=== PATIENT | male | born 1985 | race African-American/Black ===

== ENCOUNTER 2020-03-10 14:54 | Emergency (ER) | payer OTHER, SELFPAY ==
[2020-03-10 14:56] VITALS: BP 145/97; PULSE 68; RESP 16; TEMP 36.6; O2SAT 98; BMI 27.1
--- NOTE | 2020-03-10 15:12 | US_ITS ---
STUDY: SCROTUM ULTRASOUND REASON FOR EXAM: Male, 34 years old. RT TESTICLE PAIN BILAT DISCOMFORT MINOR SWELLING- X 1 MONTH TECHNIQUE: Ultrasound evaluation of the scrotum was performed with color Doppler and static asif-scale imaging. COMPARISON: None. FINDINGS: RIGHT TESTICLE INTRATESTICULAR: There is a normal size of the right testicle. The right testicle measures 4.3 x 2.8 x 1.9 cm. There is a homogenous echotexture. There is normal arterial and normal venous vascularity. There is no demonstrated right testicular mass or cyst. EXTRATESTICULAR: The epididymis is normal in size. The epididymis head measures 1.3 x 1.1 x 1.2 cm. There is normal vascularity of the epididymis. There is no demonstrated epididymal cystic structure. There is a small hydrocele. There is no demonstrated varicocele. There is no demonstrated extratesticular mass or cyst. LEFT TESTICLE INTRATESTICULAR: There is a normal size of the left testicle. The left testicle measures 4.1 x 2.7 x 2.2 cm. There is a homogenous echotexture. There is normal arterial and normal venous vascularity. There is no demonstrated left testicular mass or cyst. EXTRATESTICULAR: The epididymis is normal in size. The epididymis head measures 1.1 x 0.7 x 0.9 cm. There is normal vascularity of the epididymis. There is no demonstrated epididymal cystic structure. There is a small hydrocele. There is no demonstrated varicocele. There is no demonstrated extratesticular mass or cyst. US/Testicular with Arterial Flow IMPRESSION: Normal bilateral testicles. Electronically Signed: Hector Pino MD at 16:30 EDT Tel , Service support ,
[2020-03-10 15:23] LABS: Bacteria 0 SEEN /hpf (None Seen); Mucous, Urine 0 SEEN /hpf (<or=2+); Red Blood Cells-Urine 0 SEEN /hpf (0-5); White Blood Cells 0 SEEN /hpf (0-5)
[2020-03-10 15:33] LABS: Color, Urine Yellow (Yellow); Glucose, Dipstick Normal (Normal); Ketone-Dipstick Negative (Negative); Leukocyte Esterase-Dipstick Negative /ul (Negative); Nitrite-Dipstick Negative (Negative); Occult Blood-Urine Negative /ul (Negative); Protein-Dipstick Negative (Negative); Urine Bilirubin Dipstick Negative (Negative); Urine Clarity Clear (Clear); Urine Urobilinogen Normal (Normal)
--- NOTE | 2020-03-10 15:38 | ED.VIS.GEN ---
History of Present Illness Chief Complaint: Complaint Narrative: Patient presenting for evaluation secondary to testicular pain. Patient states that he has been dealing with testicular pain over the course of multiple weeks. Patient states that it started mildly, it is in his bilateral testicles but really right is worse than the left. Is a continuous aching type pain that is worse with movement. Patient denies that it was associated with any sort of injury. Patient states that he tried wearing more supportive underwear and that did not alleviate the symptoms. He does workout frequently, but no changes in his workout regimen or increased running or bicycling. He denies any skin changes. He denies any penile discharge or dysuria. Patient states that recently over the course of the last couple of days he has been getting some intermittent shooting pains in his right lower quadrant. Patient denies any bulging in the area. He denies any new sexual partners, has been monogamous for the last 10 years. Past Medical History - Allergies and Home Meds Allergies/Adverse Reactions: Allergies Penicillins Allergy (Verified 03/10/20 14:58) Rash Primary Care Physician: Jaquan Bedoya DO [Primary Care Provider] - Prior records reviewed: Yes Past Medical History: None Lives: Spouse/ Significant Other Smoking Status: Never smoker Drugs: None Review of Systems All systems negative except as indicated General: Denies: Chills, Fever, Sweats Eyes: Denies: Visual changes - bilaterally, Diplopia ENT: Denies: Rhinorrhea, Sore throat Cardiovascular: Denies: Chest pain, Palpitations Respiratory: Denies: Dyspnea, Cough, Dyspnea on exertion Gastrointestinal: Denies: Abdominal pain, Nausea, Vomiting, Diarrhea, Melena, Hematochezia Genitourinary: Reports: - - Testicular pain Musculoskeletal: Denies: Back pain, Extremity Pain Skin: Denies: Rash, Wounds Neurological: Denies: Headache, Weakness, Numbness Physical Exam Vital Signs/Narrative: Vital Signs Temp Pulse Resp BP Pulse Ox 03/10/20 14:56 98 F 68 16 145/97 H 98 Inital Vital Signs reviewed: Yes General: Well nourished, Well developed, No Acute Distress Head: Normocephalic, Atraumatic Eyes: Perrl, EOMI ENT: Moist mucous membranes, No rhinorrhea Neck: Supple, Nontender Cardiovascular: Regular rate, Regular rhythm, No murmurs Respiratory: No distress, CTA bilaterally, Chest nontender Abdomen: Soft, Nontender, Nondistended, Normal bowel sounds : - - exam shows no evidence of penile or scrotal lesions, no lymphadenopathy in the groin. No evidence of palpable hernias both direct or indirect with Valsalva on standing. Testicles are in a normal lie, did not seem to have any lumps bumps masses normal spermatic cords no tenderness to palpation. No urethral discharge noted. Back: Nontender, Normal Inspection Extremities: Nontender, No edema Skin: Normal color, No rash Neurological: Alert, Oriented x3, Cranial nerves II-XII grossly intact, Normal Strength, Normal Sensation Psychological: Normal affect, Normal Mood Diagnostic/Tx/Re-eval - Medical Decision Making Clinical Impression(s) from Imaging Studies Testicular Ultrasound 03/10/20 15:12 IMPRESSION: Normal bilateral testicles. Electronically Signed: Hector Pino MD at 16:30 EDT Tel , Service support , Laboratory Data 03/10/20 15:15 Urine Color Yellow Urine Clarity Clear Urine pH 5.0 Ur Specific [place] 1.020 Urine Protein Negative Urine Glucose (UA) Normal Urine Ketones Negative Urine Occult Blood Negative Urine Nitrite Negative Urine Bilirubin Negative Urine Urobilinogen Normal Ur Leukocyte Esterase Negative Urine RBC 0 SEEN Urine WBC 0 SEEN Ur Squamous Epith Cells 0-5 SEEN Urine Bacteria 0 SEEN Urine Mucus 0 SEEN Patient presented secondary to testicular pain. Physical exam does not show any signs of trauma, any signs of torsion, and I was not able to appreciate any inguinal hernias. Patient at this point has nondescript testicular pain with a negative work-up. Patient will be given referral to urology. He was recommended scrotal support patient was discharged in stable condition. ED Disposition - Plan for ED Patient: Disposition: Home or Assisted Living Diagnosis: Testicular pain Instructions: ED Testicular Pain [facility] Referrals: Ganesh Edmond MD [STAFF PHYSICIAN] - 5-7 Days
[2020-03-10 15:45] LABS: Squamous Epithelial Cells - UA 0-5 SEEN /hpf (0-5)
== END 2020-03-10 16:58 | disposition home or self-care (01) ==
PROVIDERS: Emergency Provider Emergency Medicine; PCP Student in an Organized Health Care Education/Training Program
DX: N50.811 Right testicular pain (principal); N50.812 Left testicular pain
CPT/HCPCS: 76870; 81001; 93976; 99282

== ENCOUNTER 2023-10-06 01:20 | Emergency (ER) | payer OTHER, SELFPAY ==
[2023-10-06 01:20] VITALS: BP 145/98; PULSE 78; RESP 16; TEMP 35.8; O2SAT 99; BMI 29.1
--- NOTE | 2023-10-06 01:36 | CT_ITS ---
STUDY: CTA HEAD AND NECK WITH CONTRAST REASON FOR EXAM: Male, 37 years old. visual disturbance RADIATION DOSAGE (If Supplied By Facility): CTDIvol = ( 32.13 ) mGy, DLP = ( 1492.09 ) mGycm TECHNIQUE: CT angiography was performed with a multi-detector CT scanner. Data acquisition was obtained from the skull base through the vertex following intravenous administration of IV 100mL [id number]. MIP images were reconstructed from the axial data set. Post-processing of the angiographic images was performed, with multiplanar reformation and 3D reconstruction. Individualized dose optimization techniques were used for this CT. COMPARISON: No relevant priors. FINDINGS: Normal bilateral petrous carotid arteries. Normal right cavernous carotid artery with a normal supraclinoid bifurcation. Normal left cavernous carotid artery with a normal supraclinoid bifurcation. Normal right A1 segments of the anterior cerebral artery. Normal left A1 segments of the anterior cerebral artery. Normal intact anterior communicating artery (ACOM). Normal bilateral A2 segments of the anterior cerebral arteries. Normal right M1 and M2 segments of the middle cerebral arteries, with a normal M1 bifurcation. Normal left M1 and M2 segments of the middle cerebral arteries, with a normal M1 bifurcation. Normal right posterior communicating artery (PCOM). There is non-visualization of the left posterior communicating artery (PCOM). Normal bilateral vertebral arteries. Normal basilar artery with a normal basilar bifurcation. The visualized bilateral superior cerebellar (SCA) arteries are normal. Normal bilateral P1, P2 and visualized P3 segments of the posterior cerebral arteries. There is no demonstrated aneurysm of the [place]. There is no demonstrated abnormality of the visualized brain. AORTIC ARCH: Normal visualized aortic arch. Normal origins of the brachiocephalic, left common carotid, and left subclavian arteries. RIGHT CAROTID ARTERIES: Normal right common carotid artery (CCA). Normal right common carotid bulb. Normal origin of the right internal carotid (ICA) artery without a hemodynamically significant stenosis. Normal visualized cervical portion of the right internal carotid artery. Normal origin of the right external carotid artery (ECA). LEFT CAROTID ARTERIES: Normal left common carotid artery (CCA). Normal left common carotid bulb. Normal origin of the left internal carotid (ICA) artery without a hemodynamically significant stenosis. Normal visualized cervical portion of the left internal carotid artery. Normal origin of the left external carotid artery (ECA). VERTEBRAL ARTERIES: Normal bilateral vertebral arteries. CT/CTA Head AND Neck W/ Contrast IMPRESSION: Normal CTA Head and neck with contrast with no evidence of focal stenosis, occlusion or dissection. No evidence of intracranial aneurysm. Electronically Signed: Felisa Mota MD at 2:48 EST ,
[2023-10-06] MEDS: 0.9% Normal Saline (1000mL) 1,000 ML 1000 ML IV (01:52)
[2023-10-06] MEDS: Ketorolac 30 MG/ML Syringe IV (01:52)
[2023-10-06 02:00] LABS: Absolute Lymphocyte Count 2.54 X10^3/uL (0.83-4.51); Basophil# 0.04 X10^3/uL; Basophil% 0.6 % (0-1); Eosinophil# 0.35 X10^3/uL; Eosinophils% 5.4 % (0-5); Hematocrit 45.7 % (40-54); Hemoglobin 15.2 g/dL (13.0-16.5); Lymphocyte # 2.54 X10^3/ul (0.83-4.51); Lymphocyte % 39.4 % (19-41); Mean Corp Hgb Conc 33.3 g/dL (32-36); Mean Corpuscular Hgb 28.1 pg (27.0-32.0); Mean Corpuscular Volume 84.6 fL (80-94); Mean Platelet Vol. 10.6 fl (6.2-12.0); Monocyte# 0.49 X10^3/uL; Monocyte% 7.6 % (0-10); NRBC Flagged by Analyzer 0 % (0-5); Neutrophil # 3.01 X10^3/uL (2.7-7.7); Neutrophil % 46.8 % (47-70); Platelet Count 254 K/mm3 (150-450); RBC Distribution Width CV 12.2 % (11.6-14.6); RBC Distribution Width SD 36.9 fl (35.1-43.9); White Blood Count 6.4 K/mm3 (4.4-11.0)
[2023-10-06 02:08] LABS: Anion Gap 4 (5-15); BUN 20 mg/dL (7-18); BUN/Creat Ratio 12.7 RATIO (10-20); Calcium,Total 9.1 mg/dL (8.5-10.1); Chloride 108 mmol/L (98-107); Creatinine, Serum 1.58 mg/dL (0.70-1.30); EST Glomerular Filtration Rate 53 mL/min (>60); Est Glom Filt Rate - Afr Amer 64 mL/min (>60); Estimated Creatinine Clearance 78.18 ml/min; Glucose 112 mg/dL (74-106); Potassium 4.2 mmol/L (3.5-5.1); Sodium Level 140 mmol/L (136-145)
--- OUTSIDE RECORDS SUMMARY | 2023-10-06 02:32 | XMS RPT_ITS | CCD ---
Author Name Unknown Address [address] [place] [address] Organization [facility] Care Team Providers Care Sack Cleaner Name Role Phone Jaquan Bedoya DO Primary Care Provider JAQUAN BEDOYA Primary Care Unavailable NKECHI LOZANO Referring Unavailable NKECHI LOZANO Attending Unavailable JAQUAN BEDOYA Primary Care Unavailable JAQUAN BEDOYA Primary Care Unavailable NKECHI LOZANO Attending Unavailable MONA FINLEY Attending Unavailable JAQUAN BEDOYA Primary Care Unavailable JAQUAN BEDOYA Primary Care Unavailable NKECHI LOZANO Referring Unavailable JAQUAN BEDOYA Primary Care Unavailable Jaquan Bedoya DO Primary Care Provider Medications Current Medications Medication Drug Class(es) Dates Sig (Normalized) Sig (Original) predniSONE 10 mg oral tablet (1 source) Start: 08-03-2022 End: 08-15-2022 predniSONE (DELTASONE) 10 mg tablet Indications: Acute midline low back pain without sciatica Take 4 tabs daily x 3 days, then 3 tabs x 3 days, 2 tabs x 3 days, then 1 tab x3 days with food. 30 tablet 0 08/03/2022 08/15/2022 Active Completed/Discontinued Medications Medication Drug Class(es) Dates Sig (Normalized) Sig (Original) cyclobenzaprine hydrochloride 10 mg oral tablet (1 source) Muscle Relaxant Start: 08-03-2022 take 1 tablet by mouth three times daily as needed for muscle spasms cyclobenzaprine (FLEXERIL) 10 mg tablet Indications: Acute midline low back pain without sciatica Take 1 tablet by mouth three times daily as needed for muscle spasm. 15 tablet 0 08/03/2022 Active Problems Problem Classification Problem Date Documented Da te Episodic/Chronic Anxiety disorders (3 sources) Generalized anxiety disorder; Translations: [Generalized anxiety disorder] Onset: 04-02-2022 Chronic Disorders of lipid metabolism (3 sources) Mixed hyperlipidemia; Translations: [Mixed hyperlipidemia] Onset: 05-09-2022 Chronic Other screening for suspected conditions (not mental disorders or infectious disease) (3 sources) Serum creatinine raised; Translations: [Other specified abnormal findings of blood chemistry] Onset: 06-12-2022 Episodic Spondylosis; intervertebral disc disorders; other back problems (1 source) Acute low back pain; Translations: [Acute midline low back pain without sciatica] Episodic Results Test Name Value Interpretation Reference Range Facil ity Vital Signs Date Time Vital Sign Value Performing Clinician Bernardo bustamante 08-03-2022 13:01-0500 Body temperature 97.81 [degF] Neel Moreno ROTOFORMER BACKTENDER.AWNING CRAFTSPERSON Work Phone: [facility] 08-03-2022 13:01-0500 Body weight 94.08 kg Neel Moreno ROTOFORMER BACKTENDER.AWNING CRAFTSPERSON Work Phone: [facility] 08-03-2022 13:01-0500 Diastolic blood pressure 84 mm[Hg] Neel oMreno ROTOFORMER BACKTENDER.AWNING CRAFTSPERSON Work Phone: [facility] 08-03-2022 13:01-0500 Heart rate 69 /min Neel Moreno ROTOFORMER BACKTENDER.AWNING CRAFTSPERSON Work Phone: [facility] 08-03-2022 13:01-0500 Respiratory rate 16 /min Neel Moreno ROTOFORMER BACKTENDER.AWNING CRAFTSPERSON Work Phone: [facility] 08-03-2022 13:01-0500 SaO2% (BldA) [Mass fraction] 97 % Neel Moreno ROTOFORMER BACKTENDER.AWNING CRAFTSPERSON Work Phone: [facility] 08-03-2022 13:01-0500 Systolic blood pressure 122 mm[Hg] Neel Moreno ROTOFORMER BACKTENDER.AWNING CRAFTSPERSON Work Phone: [facility] 05-09-2022 15:05-0400 Body weight 93.89 kg Nkechi Lozano ROTOFORMER BACKTENDER.AWNING CRAFTSPERSON Work Phone: [facility] 05-09-2022 15:05-0400 Diastolic blood pressure 86 mm[Hg] Nkechi Lozano ROTOFORMER BACKTENDER.AWNING CRAFTSPERSON Work Phone: [facility] 05-09-2022 15:05-0400 Heart rate 70 /min Nkechi Lozano ROTOFORMER BACKTENDER.AWNING CRAFTSPERSON Work Phone: [facility] 05-09-2022 15:05-0400 Respiratory rate 16 /min Nkechi Lozano ROTOFORMER BACKTENDER.AWNING CRAFTSPERSON Work Phone: [facility] 05-09-2022 15:05-0400 SaO2% (BldA) [Mass fraction] 98 % Nkechi Lozano ROTOFORMER BACKTENDER.AWNING CRAFTSPERSON Work Phone: [facility] 05-09-2022 15:05-0400 Systolic blood pressure 124 mm[Hg] Nkechi Lozano ROTOFORMER BACKTENDER.AWNING CRAFTSPERSON Work Phone: [facility] Encounters Encounter Date Encounter Type Care Provider Facility Start: 08-06-2022 End: 08-06-2022 ambulatory MONA FINLEY Facility:[facility] Start: 08-03-2022 End: 08-03-2022 ambulatory JAQUAN Brizuela BEDOYA Facility:[facility] Start: 08-03-2022 End: 08-03-2022 Patient encounter procedure Neel Moreno ROTOFORMER BACKTENDER.AWNING CRAFTSPERSON Work Phone: [facility] Procedures Date Procedure Procedure Detail Performing Clinician Start: 04-02-2022 Adult depression screening assessment Nkechi Lozano APRN.AWNING CRAFTSPERSON Work Phone: Plan of Treatment Date Care Activity Detail Author Start: 05-09-2027 LIPID SCREEN LIPID SCREEN [facility] Start: 08-06-2023 COVID-19 VACCINE (#1) COVID-19 VACCI NE (#1) [facility] Payers Date Payer Category Payer Unknown [employer] PPO [id number] 2019-Present [phone] [address] [place] [address] PPO [id number] 2019 Unknown [id number] Social History Date Type Detail Facility Start: 04-02-2022 Tobacco smoking stat us NHIS Never smoked tobacco [facility] Start: 04-02-2022 Tobacco use and exposure Smoke less tobacco non-user [facility] Start: 04-02-2022 End: 08-06-2022 History SDOH Alcohol Frequency 2 [facility] Start: 04-02-2022 End: 08-06-2022 History SDOH Alcohol Std Drinks 1 [facility] Start: 05-15-2017 History SDOH Alcohol Comment social [facility] Start: 04-02-2022 End: 08-06-2022 History SDOH Social Connections Phone 5 [facility] Start: 04-02-2022 End: 08-06-2022 History SDOH Social Connections Meetings 3 [facility] Start: 04-02-2022 History SDOH Physica l Activity MPS 12 [facility] Start: 04-02-2022 End: 08-06-2022 History SDOH Financial 4 [facility] Start: 1985 Sex Assigned At Not on file C [facility] Clinical Notes 04-02-2022 to 08-06-2022 Neel Moreno APRN.AWNING CRAFTSPERSON - 08/03/2022 1:12 PM ESTTelephone Encounter - Deanna Marques LPN - 06/14/2022 9:48 AM EDTTelephone Encounter - Nkechi Lozano APRN.CNP - 06/13/2022 9:58 PM EDT Note Date & Type Note Facility 08-06-2022 Note HNO ID: [id number] Author: Mona Finley APRN.RE Service: ? 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 Melo is an established patient of Dr. Aureliano DO. Melo is a new patient to me today. Concerns today.. Back injury --- Seen in Urgent care on 08/03 due to acute low back pain x 1 day after playing basketball. Given prednisone taper x 12 days and flexeril TID as needed. Currently... Pt reports feeling better than urgent care visit. Still sore and tender. Taking flexeril BID currently and taking prednisone as prescribed. Pt reports pain to L side of spine in lower back. Shooting pain radiates down L leg, hx of sciatica pain in the past. 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 No other concerns or complaints. Past medical history, appointments, medications, allergies reviewed. Previous Medical History PAST MEDICAL HISTORY Diagnosis Date NEGATIVE MEDICAL HISTORY Previous Surgical History PAST SURGICAL HISTORY Procedure Laterality Date NONE Family History FAMILY HISTORY Problem Relation Age of Onset Cancer Mother thyroid Seizures Father Stroke Maternal Grandmother Heart Maternal Grandfather other (healthy) Son Patient Allergies ALLERGIES No Known Allergies Current Medications Current Outpatient Medications on File Prior to Visit Medication Sig predniSONE (DELTASONE) 10 mg tablet Take 4 tabs daily x 3 days, then 3 tabs x 3 days, 2 tabs x 3 days, then 1 tab x3 days with food. cyclobenzaprine (FLEXERIL) 10 mg tablet Take 1 tablet by mouth three times daily as needed for muscle spasm. FLUoxetine (PROZAC) 20 mg capsule Take 1 capsule by mouth once daily. rosuvastatin (CRESTOR) 5 mg tablet Take 1 tablet by mouth daily at bedtime. No current facility-administered medications on file prior to visit. Social History Social History Tobacco Use Smoking status: Never Smokeless tobacco: Never Substance Use Topics Drug use: No REVIEW OF SYSTEMS: as above Reviewed relevant PMHx, PSHx, Social Hx, current medications and allergies. Review of Symptoms REVIEW OF SYSTEMS See HPI. All other systems are negative. EXAM: BP 120/80 (BP Site: Left Arm, BP Position: Sitting, BP Cuff Size: Regular Adult) Pulse 68 Resp 14 Wt 95.5 kg (210 lb 9.6 oz) BMI 28.53 kg/m? General Appearance: Well appearing, alert, in no acute distress, well-hydrated, well nourished.. Skin: Skin color, texture, turgor normal, no suspicious rashes or lesions. Head: Normocephalic, no masses, lesions, tenderness or abnormalities. Extremities: No deformities, edema, skin discoloration, clubbing or cyanosis. Good capillary refill. . Musculoskeletal: No joint swelling, deformity, or tenderness. Peripheral Pulses: Normal. Neurologic: Gait normal. Reflexes normal and symmetric. Sensation grossly intact.. Health Maintenance List HEPATITIS B(1 of 3 - 3-dose series) Never done COVID-19 VACCINE(1) Never done HEPATITIS C SCREENING Never done HIV SCREENING Never done DTAP,TDAP,TD(1 - Tdap) Never done DEPRESSION ASSESSMENT Never done INFLUENZA(1) due on 04/26/2022 LIPID SCREEN due on 05/09/2027 ASSESSMENT/PLAN: 1. Acute midline low back pain without sciatica - ICD9: 724.2, ICD10: M54.50 X-ray lower back Continue with flexeril and prednisone taper. Gave off work x 3 days to rest back and recover. Discussed not taking flexeril prior to work due to drowsy side effects. Pt understands. Due to needing BID dosage currently, will give 3 days to recover prior to decreasing dosage to return to work. Able to return to work with no restrictions on , August 09. - XR LUMBAR GENERAL 3V AP/LAT/L5-S1 RTO if symptoms worsen or do not improve. Prescription instructions reviewed with patient as applicable. Potential red flag symptoms discussed with the patient. Reviewed appropriate action plan to take if red flag symptoms occur. Patient agreeable to treatment plan. Mona Finley APRN.AWNING CRAFTSPERSON [address] [place] [address] [facility] 08-03-2022 Note HNO ID: [id number] Author: Neel Moreno APRN.AWNING CRAFTSPERSON Service: ? Author Type: Nurse Practitioner Type: Progress Notes Filed: 08/03/2022 1:55 PM Note Text: Subjective HPI HPI Melo Owens is a 36 year old male who presents today for CC of low back pain after playing basketball. No injury noted. This started 1 day ago. Has tried otc medication for relief. Symptoms are worsened by rom of back. Risk factors hx of sciatica. .Patient presents with: Back Pain: Injured back last night playing basketball PAST MEDICAL HISTORY Diagnosis Date NEGATIVE MEDICAL HISTORY PAST SURGICAL HISTORY Procedure Laterality Date NONE ALLERGIES Patient has no known allergies. MEDICATIONS FLUoxetine (PROZAC) 20 mg capsule Take 1 capsule by mouth once daily. rosuvastatin (CRESTOR) 5 mg tablet Take 1 tablet by mouth daily at bedtime. FAMILY HISTORY Problem Relation Age of Onset Cancer Mother thyroid Seizures Father Stroke Maternal Grandmother Heart Maternal Grandfather other (healthy) Son Social History Tobacco Use Smoking status: Never Smokeless tobacco: Never Substance Use Topics Drug use: No Review of Systems Constitutional: Negative for chills, fever and weight loss. Cardiovascular: Negative for leg swelling. Gastrointestinal: Negative for abdominal pain, constipation, diarrhea, nausea and vomiting. Genitourinary: Negative for dysuria, flank pain, frequency, hematuria and urgency. Musculoskeletal: Positive for back pain. Skin: Negative for rash. Neurological: Negative for sensory change and focal weakness. Objective Blood pressure 122/84, pulse 69, temperature 36.6 ?C (97.8 ?F), temperature source Tympanic, resp. rate 16, weight 94.1 kg (207 lb 6.4 oz), SpO2 97 %. Physical Exam Constitutional: General: He is not in acute distress. Appearance: Normal appearance. He is not diaphoretic. Cardiovascular: Pulses: Dorsalis pedis pulses are 2+ on the right side and 2+ on the left side. Posterior tibial pulses are 2+ on the right side and 2+ on the left side. Abdominal: General: Bowel sounds are normal. Palpations: Abdomen is soft. Tenderness: There is no abdominal tenderness. Musculoskeletal: Lumbar back: Spasms present. Decreased range of motion. Comments: Lumbar paraspinal muscles tender with palpation Neurological: Mental Status: He is alert and oriented to person, place, and time. Gait: Gait is intact. Gait normal. Deep Tendon Reflexes: Reflex Scores: Patellar reflexes are 2+ on the right side and 2+ on the left side. ASSESSMENT/PLAN: 1. Acute midline low back pain without sciatica - ICD9: 724.2, ICD10: M54.50 Steroids/flexeril ordered Home pt provided F/u with pcp if s/s persist/worsen/change Urgent f/u for red flag symptoms - PREDNISONE 10 MG TABLET - CYCLOBENZAPRINE 10 MG TABLET Neel Moreno APRN.AWNING CRAFTSPERSON [facility] 08-03-2022 History of Presen t illness Narrative Subjective HPI HPI Melo Owens is a 36 year old male who presents today for CC of low back pain after playing basketball. No injury noted. This started 1 day ago. Has tried otc medication for relief. Symptoms are worsened by rom of back. Risk factors hx of sciatica. .Patient presents with: Back Pain: Injured back last night playing basketball PAST MEDICAL HISTORY Diagnosis Date NEGATIVE MEDICAL HISTORY PAST SURGICAL HISTORY Procedure Laterality Date NONE ALLERGIES Patient has no known allergies. MEDICATIONS FLUoxetine (PROZAC) 20 mg capsule Take 1 capsule by mouth once daily. rosuvastatin (CRESTOR) 5 mg tablet Take 1 tablet by mouth daily at bedtime. FAMILY HISTORY Problem Relation Age of Onset Cancer Mother thyroid Seizures Father Stroke Maternal Grandmother Heart Maternal Grandfather other (healthy) Son Social History Tobacco Use Smoking status: Never Smokeless tobacco: Never Substance Use Topics Drug use: No Review of Systems Constitutional: Negative for chills, fever and weight loss. Cardiovascular: Negative for leg swelling. Gastrointestinal: Negative for abdominal pain, constipation, diarrhea, nausea and vomiting. Genitourinary: Negative for dysuria, flank pain, frequency, hematuria and urgency. Musculoskeletal: Positive for back pain. Skin: Negative for rash. Neurological: Negative for sensory change and focal weakness. Objective Blood pressure 122/84, pulse 69, temperature 36.6 C (97.8 F), temperature source Tympanic, resp. rate 16, weight 94.1 kg (207 lb 6.4 oz), SpO2 97 %. Physical Exam Constitutional: General: He is not in acute distress. Appearance: Normal appearance. He is not diaphoretic. Cardiovascular: Pulses: Dorsalis pedis pulses are 2+ on the right side and 2+ on the left side. Posterior tibial pulses are 2+ on the right side and 2+ on the left side. Abdominal: General: Bowel sounds are normal. Palpations: Abdomen is soft. Tenderness: There is no abdominal tenderness. Musculoskeletal: Lumbar back: Spasms present. Decreased range of motion. Comments: Lumbar paraspinal muscles tender with palpation Neurological: Mental Status: He is alert and oriented to person, place, and time. Gait: Gait is intact. Gait normal. Deep Tendon Reflexes: Reflex Scores: Patellar reflexes are 2+ on the right side and 2+ on the left side. ASSESSMENT/PLAN: 1. Acute midline low back pain without sciatica - ICD9: 724.2, ICD10: M54.50 Steroids/flexeril ordered Home pt provided F/u with pcp if s/s persist/worsen/change Urgent f/u for red flag symptoms - PREDNISONE 10 MG TABLET - CYCLOBENZAPRINE 10 MG TABLET Neel Moreno APRN.AWNING CRAFTSPERSON documented in this encounter [facility] 06-14-2022 Miscellaneous Notes Patient notified of results, verbalizes understanding of instructions. .me Can please let patient know that I received his lab results. His creatinine is still elevated. Is he taking any OTC supplements? Please return to complete the urine studies. Let's have him also get a kidney ultrasound. The orders are placed. Thanks, Nkechi Lozano APRN.CNP documented in this encounter [facility] 05-11-2022 Miscellaneous Notes Pt notified. He verbalized understanding. (Yes, he was fasting when labs were drawn) Can please let patient know that I received his lab results. Overall, everything looks good. His one kidney function test was a little off. Was he fasting when he did the labs? I would like to have him repeat this in the next few weeks, but make sure he is really well hydrated when he comes in. I would also like to check a urine at that time, as well. The orders are in. Nkechi Lozano APRN.RE documented in this encounter [facility] 05-09-2022 Note HNO ID: [id number] Author: Nkechi Lozano APRN.CNP Service: ? Author Type: Nurse Practitioner Type: Progress Notes Filed: 05/09/2022 4:51 PM Note Text: This is a 36 year old male who presents today with: Patient presents with: Follow Up: 6 week HISTORY OF PRESENT ILLNESS: Melo Owens is a 36 year old male. Patient presents with: Follow Up: 6 week Pt presents today to follow-up. Mood/anxiety Doing well with the prozac. Wouldn't change anything with the dose. Refers this is the best that he has felt in some time. HYPERLIPIDEMIA: Patient is taking medications: Yes. Patient is watching diet: Yes. Patient denies myalgias: trying to eat more at home. Patient denies gi upset: Yes PAST MEDICAL HISTORY: PAST MEDICAL HISTORY Diagnosis Date NEGATIVE MEDICAL HISTORY PAST SURGICAL HISTORY Procedure Laterality Date NONE ALLERGIES Patient has no known allergies. MEDICATIONS Current Outpatient Medications Medication Sig FLUoxetine (PROZAC) 20 mg capsule Take 1 capsule by mouth once daily. Start after taking the 10 mg daily X 1 week. rosuvastatin (CRESTOR) 5 mg tablet Take 1 tablet by mouth daily at bedtime. FLUoxetine (PROZAC) 10 mg capsule Take 1 capsule by mouth once daily. Take one daily X 7 days; then increase to 20 mg daily. No current facility-administered medications for this visit. FAMILY HISTORY Problem Relation Age of Onset Cancer Mother thyroid Seizures Father Stroke Maternal Grandmother Heart Maternal Grandfather other (healthy) Son Social History Tobacco Use Smoking status: Never Smokeless tobacco: Never Substance Use Topics Drug use: No EXAM: BP 124/86 Pulse 70 Resp 16 Wt 93.9 kg (207 lb) SpO2 98% BMI 28.04 kg/m? PHYSICAL EXAM: General Appearance: Well appearing, alert, in no acute distress, well-hydrated, well nourished.. Skin: Skin color, texture, turgor normal, no suspicious rashes or lesions. Head: Normocephalic, no masses, lesions, tenderness or abnormalities. Eyes: Anicteric sclera. Extraocular movements are intact. . Lungs: Lungs clear to auscultation. No wheezing, rhonchi, rales.. Heart: RRR without murmur, gallop, or rubs. No ectopy. Neurologic: Gait normal. ASSESSMENT/PLAN: 1. WILLIE (generalized anxiety disorder) - ICD9: 300.02, ICD10: F41.1 (primary diagnosis) Doing well with fluoxetine. No side effects. Happy with current dosing regimen. Continue without change. - FLUOXETINE 20 MG CAPSULE 2. Mixed hyperlipidemia - ICD9: 272.2, ICD10: E78.2 Tolerating the Crestor without problems. Did repeat labs today. Follow-up pending results. - ROSUVASTATIN 5 MG TABLET Discussed treatment plan and patient voices understanding. Patient's questions answered appropriately. Medications and potential side effects were discussed and patient voices understanding. Return to the office as scheduled or as needed for worsening/no improvement. Nkechi Lozano APRN.RE This note was partially generated using Flat.to voice recognition system. Note was reviewed for accuracy. There may be minor misspellings or grammar miscues with [employer] voice recognition. [facility] 05-09-2022 Instructions Nkechi Lozano APRN.RE - 05/09/2022 3:24 PM EDT Continue the same medication. 2. Recheck in 6 months. documented in this encounter [facility] 05-09-2022 History of Presen t illness Narrative This is a 36 year old male who presents today with: Patient presents with: Follow Up: 6 week HISTORY OF PRESENT ILLNESS: Melo Owens is a 36 year old male. Patient presents with: Follow Up: 6 week Pt presents today to follow-up. Mood/anxiety Doing well with the prozac. Wouldn't change anything with the dose. Refers this is the best that he has felt in some time. HYPERLIPIDEMIA: Patient is taking medications: Yes. Patient is watching diet: Yes. Patient denies myalgias: trying to eat more at home. Patient denies gi upset: Yes PAST MEDICAL HISTORY: PAST MEDICAL HISTORY Diagnosis Date NEGATIVE MEDICAL HISTORY PAST SURGICAL HISTORY Procedure Laterality Date NONE ALLERGIES Patient has no known allergies. MEDICATIONS Current Outpatient Medications Medication Sig FLUoxetine (PROZAC) 20 mg capsule Take 1 capsule by mouth once daily. Start after taking the 10 mg daily X 1 week. rosuvastatin (CRESTOR) 5 mg tablet Take 1 tablet by mouth daily at bedtime. FLUoxetine (PROZAC) 10 mg capsule Take 1 capsule by mouth once daily. Take one daily X 7 days; then increase to 20 mg daily. No current facility-administered medications for this visit. FAMILY HISTORY Problem Relation Age of Onset Cancer Mother thyroid Seizures Father Stroke Maternal Grandmother Heart Maternal Grandfather other (healthy) Son Social History Tobacco Use Smoking status: Never Smokeless tobacco: Never Substance Use Topics Drug use: No EXAM: BP 124/86 Pulse 70 Resp 16 Wt 93.9 kg (207 lb) SpO2 98% BMI 28.04 kg/m PHYSICAL EXAM: General Appearance: Well appearing, alert, in no acute distress, well-hydrated, well nourished.. Skin: Skin color, texture, turgor normal, no suspicious rashes or lesions. Head: Normocephalic, no masses, lesions, tenderness or abnormalities. Eyes: Anicteric sclera. Extraocular movements are intact. . Lungs: Lungs clear to auscultation. No wheezing, rhonchi, rales.. Heart: RRR without murmur, gallop, or rubs. No ectopy. Neurologic: Gait normal. ASSESSMENT/PLAN: 1. WILLIE (generalized anxiety disorder) - ICD9: 300.02, ICD10: F41.1 (primary diagnosis) Doing well with fluoxetine. No side effects. Happy with current dosing regimen. Continue without change. - FLUOXETINE 20 MG CAPSULE 2. Mixed hyperlipidemia - ICD9: 272.2, ICD10: E78.2 Tolerating the Crestor without problems. Did repeat labs today. Follow-up pending results. - ROSUVASTATIN 5 MG TABLET Discussed treatment plan and patient voices understanding. Patient's questions answered appropriately. Medications and potential side effects were discussed and patient voices understanding. Return to the office as scheduled or as needed for worsening/no improvement. Nkechi Lozano APRN.RE This note was partially generated using Flat.to voice recognition system. Note was reviewed for accuracy. There may be minor misspellings or grammar miscues with Flat.to voice recognition. documented in this encounter [facility] 04-27-2022 Miscellaneous Notes Patient phones requesting refills as follows: Requested Prescriptions Pending Prescriptions Disp Refills FLUoxetine (PROZAC) 20 mg capsule 30 capsule 2 Sig: Take 1 capsule by mouth once daily. Start after taking the 10 mg daily X 1 week. rosuvastatin (CRESTOR) 5 mg tablet 30 tablet 2 Sig: Take 1 tablet by mouth daily at bedtime. LEXI 04/02/22 NOV 05/09/22 Please review and advise. Alexandra Rogers LPN documented in this encounter [facility] 04-02-2022 Note HNO ID: [id number] Author: Nkechi Lozano APRN.AWNING CRAFTSPERSON Service: ? Author Type: Nurse Practitioner Type: Progress Notes Filed: 04/02/2022 8:05 PM Note Text: This is a 36 year old male who presents today with: Patient presents with: Yearly Exam: Discuss anxiety; had labs done at work HISTORY OF PRESENT ILLNESS: Melo Owens is a 36 year old male. Patient presents with: Yearly Exam: Discuss anxiety; had labs done at work Pt presents today for recheck. Increased anxiety. Working nights. Finished bachelor's degree. Has taken fluoxetine in the past, but really didn't notice any difference. He is interested in restarting medication. Refers that he had wellness labs at work. Advised that his cholesterol level was elevated and he should follow-up. He previously was prescribed simvastatin, but did not take consistently. He would like to go back on medication. PAST MEDICAL HISTORY: PAST MEDICAL HISTORY Diagnosis Date NEGATIVE MEDICAL HISTORY PAST SURGICAL HISTORY Procedure Laterality Date NONE ALLERGIES Patient has no known allergies. MEDICATIONS Current Outpatient Medications Medication Sig FLUoxetine 10 mg tablet Take 1 tablet by mouth once daily. cyclobenzaprine (FLEXERIL) 10 mg tablet Take 1 tablet by mouth three times daily as needed for Muscle Spasm. simvastatin (ZOCOR) 20 mg tablet Take 1 tablet by mouth daily at bedtime. (Patient not taking: Reported on 01/02/2019 ) No current facility-administered medications for this visit. FAMILY HISTORY Problem Relation Age of Onset Cancer Mother thyroid Seizures Father Stroke Maternal Grandmother Heart Maternal Grandfather other (healthy) Son Social History Tobacco Use Smoking status: Never Smokeless tobacco: Never Substance Use Topics Drug use: No EXAM: BP 138/100 Pulse 79 Resp 18 Ht 183 cm (6' 0.05 ) Wt 97.2 kg (214 lb 3.2 oz) SpO2 97% BMI 29.01 kg/m? PHYSICAL EXAM: General Appearance: Well appearing, alert, in no acute distress, well-hydrated, well nourished.. Skin: Skin color, texture, turgor normal, no suspicious rashes or lesions. Head: Normocephalic, no masses, lesions, tenderness or abnormalities. Eyes: Anicteric sclera. Pupils are equally round and reactive to light. Extraocular movements are intact. . Oropharynx: Lips, mucosa, and tongue normal, teeth and gums normal, oropharynx normal. Neck: Supple, no adenopathy; thyroid symmetric, normal size, no bruits. Lungs: Lungs clear to auscultation. No wheezing, rhonchi, rales.. Heart: RRR without murmur, gallop, or rubs. No ectopy. Abdomen: Abdomen soft, non-tender. Bowel sounds normal. No masses, organomegaly. Extremities: No deformities, edema, skin discoloration, clubbing or cyanosis. Good capillary refill. . Neurologic: Gait normal. ASSESSMENT/PLAN: 1. WILLIE (generalized anxiety disorder) - ICD9: 300.02, ICD10: F41.1 (primary diagnosis) He would like to restart medication. He did not have any side effects to the fluoxetine in the past, he just did not notice an improvement. Discussed with patient that he was only on 10 mg of the fluoxetine so likely dosage is not therapeutic. Options discussed and we will get a go ahead and restart the fluoxetine at 10 mg daily for 7 days and then increase to 20 mg. Plan to follow-up in 1 month. - FLUOXETINE 10 MG CAPSULE - FLUOXETINE 20 MG CAPSULE 2. Mixed hyperlipidemia - ICD9: 272.2, ICD10: E78.2 We will go ahead and start Crestor. He will get fasting labs completed in 2 months. - ROSUVASTATIN 5 MG TABLET Discussed treatment plan and patient voices understanding. Patient's questions answered appropriately. Medications and potential side effects were discussed and patient voices understanding. Return to the office as scheduled or as needed for worsening/no improvement. Nkechi Lozano APRN.AWNING CRAFTSPERSON This note was partially generated using Flat[employer]to voice recognition system. Note was reviewed for accuracy. There may be minor misspellings or grammar miscues with [employer] voice recognition. [facility] Diagnosis WILLIE (generalized anxiety disorder)- Primary Generalized anxiety disorder Mixed hyperlipidemia [facility] Diagnosis Elevated serum creatinine- Primary Other nonspecific findings on examination of blood [facility] Diagnosis Acute midline low back pain without sciatica- Primary [facility] Diagnosis Elevated serum creatinine- Primary Other nonspecific findings on examination of blood [facility] (narrative)* Diagnostic Procedure Only (Routine) - Pending Review Specialty Diagnoses / Procedures Referred By Jo kenyon Referred To Contact US IMAGING Diagnoses Elevated serum creatinine Procedures US KIDNEY/BLADDER US RETROPERITONEAL REAL TIME W/IMAGE COMPLETE Nkechi Lozano APRN.CNP [address] [place] [address] Us Imaging Referral ID Status Reason Start Date Expiration Date Visits Requested Visits Authorized [id number] Pending Review Auto-Generat ed Referral 2 07/13/2023 1 1 [facility] Summary Purpose Family History No Family History Records Found Advance Directives No Advanced Directives Records Found Additional Source Comments Source Comments (unrecognize d section and content) In the event this informatio n is protected by the Federal Confidentiality of Alcohol and Drug Abuse Patient Records regulations: The Federal rules restrict any use of the information to criminally investigate or prosecute any alcohol or drug abuse patient.[facility] the event this information is protected by the Federal Confidentiality of Alcohol and Drug Abuse Patient Records regulations: The Federal rules restrict any use of the information to criminally investigate or prosecute any alcohol or drug abuse patient.[facility] the event this information is protected by the Federal Confidentiality of Alcohol and Drug Abuse Patient Records regulations: The Federal rules restrict any use of the information to criminally investigate or prosecute any alcohol or drug abuse patient.[facility] the event this information is protected by the Federal Confidentiality of Alcohol and Drug Abuse Patient Records regulations: The Federal rules restrict any use of the information to criminally investigate or prosecute any alcohol or drug abuse patient.[facility] the event this information is protected by the Federal Confidentiality of Alcohol and Drug Abuse Patient Records regulations: The Federal rules restrict any use of the information to criminally investigate or prosecute any alcohol or drug abuse patient.[facility] Reason for Visit (unrecogniz ed section and content) Reason Comments Follow Up 6 week Specialty Diagnoses / Procedures Referred By Contac t Referred To Contact Family Practice / FAMILY MEDICINE Diagnoses Anxiety Bloodwork/ meds for anxiety previous dosage toolow Procedures OFFICE/OUTPATIENT NEW MODERATE MDM 45-59 MINUTES MYC PHYSICAL Self Nkechi Lozano, ELIS.AWNING CRAFTSPERSON [address] [place] [address] Referral ID Status Reason Start Date Expiration Date Visits Re quested Visits Authorized [id number] Closed 04/02/2022 08/25/2022 1 1 Reason Comments Results Reason Comments Back Pain Injured back last ni ght playing basketball Specialty Diagnoses / Procedures Referred By Jo eknyon Referred To Contact [facility] Diagnoses Encounter for follow-up examination after completed treatment for conditions other than malignant neoplasm injured back while playing basketball last night Procedures OFFICE/OUTPATIENT ESTABLISHED MOD MDM 30-39 MIN EST SAME DAY [facility] [address] [place] [address] Referral ID Status Reason Start Date Expiration Date Visits Re quested Visits Authorized [id number] Closed 08/03/2022 08/25/2022 1 1 Reason Comments Results Care Teams (unrecognized sec tion and content) Sack Cleaner Relationship Specialty Start Date End Date Jaquan Bedoya DO [address] [place] [address] PCP - General Family Practice 05/15/17 Sack Cleaner Relationship Specialty Start Date End Date Jaquan Bedoya DO [address] [place] [address] PCP - General Family Practice 05/15/17 Sack Cleaner Relationship Specialty Start Date End Date Jaquan Bedoya DO [address] [place] [address] PCP - General Family Medicine 05/15/17 Sack Cleaner Relationship Specialty Start Date End Date Jaquan Bedoya DO [address] [place] [address] PCP - General Family Medicine 05/15/17 (unrecognized sect ion and content) No Status Records Found INFORMATION SOURCE (unrecogn ized section and content) FOR RECORDS PERTAINING TO PATIENTS WHO ARE OR HAVE BEEN ENROLLED IN A CHEMICAL DEPENDENCY/SUBSTANCEABUSE PROGRAM, SOME INFORMATION MAY BE OMITTED. This clinical summary was aggregated from multiple sources. Caution should be exercised in using it in the provision of clinical care. This summary normalizes information from multiple sources, and as a consequence, information in this document may materially change the coding, format and clinical context of patient data. In addition, data may be omitted in some cases. CLINICAL DECISIONS SHOULD BE BASED ON THE PRIMARY CLINICAL RECORDS. [facility] [employer] [facility]. provides no warranty or guarantee of the accuracy or completeness of information in this document.
--- NOTE | 2023-10-06 03:23 | EDS_ITS ---
HPI History of Present Illness Chief Complaint: Headache Informant: patient Narrative Narrative: Patient presents secondary to headache with confusion, left arm tingling, and left eye vision change. He states last evening he developed a frontal headache that was gradual in onset. He does not typically get headaches. He did not have recent head injury or URI symptoms. He then noted that his left eye was not focusing quite as well as normal and thought he had some tingling in his left arm. He did not note any weakness. He states he had to think consciously about how to get here. He did drive himself to the emergency room. Patient is a history of high cholesterol. [facility] Medical History (Updated 10/06/23 @ 03:[address] Waleska Trevizo MD) High cholesterol Medical History no medical history Allergy/AdvReac Type Severity Reaction Status Date / Time Penicillins Allergy Rash Verified 03/10/20 14:58 Social History Smoking Status: Never smoker ROS ROS ED Constitutional Constitutional ED: Denies chills or fever(s) Eyes Eyes: Reports change in vision; Denies discharge from eye(s) ENT ENT ED: Denies discharge from eye(s), rhinorrhea or sore throat Cardiovascular Cardiovascular: Denies chest pain or palpitations Respiratory/Chest Respiratory/Chest: Denies cough or dyspnea Gastrointestinal Gastrointestinal: Denies abdominal pain, nausea or vomiting Musculoskeletal Musculoskeletal: Denies back pain or extremity pain Integumentary Denies Abrasions or rash Neurologic Neurologic: Reports headache(s) and paresthesias; Denies weakness Psychiatric Psychiatric: Denies anxiety or depression Allergic/Immunologic Allergic/Immunologic ED: Denies lip swelling or urticaria EXAM Physical Exam Const Vital Signs: 10/06/23 01:20 Temperature 96.5 F L Temperature Source Temporal Pulse Rate 78 Respiratory Rate 16 Blood Pressure 145/98 H Blood Pressure Mean 113 Pulse Ox 99 Oxygen Delivery Method Room Air Positive well nourished and well developed General Appearance ED: well developed HEENT Reports moist mucous membranes Eyes EOMs intact bilaterally Chest Wall inspection of chest normal and palpation of chest normal Resp normal respiratory effort and clear to auscultation bilaterally Cardio regular rate and regular rhythm GI non-tender Palpation: soft Extremity normal to inspection Neuro oriented x3 and no sensory deficits noted Neuro Narrative: NIH equals 0 at the time of my exam. Motor Exam: strength 5/5 throughout Psych mental status grossly normal Skin no rashes or lesions noted MDM MDM MDM Narrative Medical decision making narrative: Patient placed on rn dialysis. IV line initiated. Patient given IV fluids and Toradol. He did drive himself to the emergency room so full migraine cocktail was not given. Labwork obtained to evaluate for leukocytosis, anemia, and electrolyte derangement. CTA of the head and neck obtained to evaluate for any stenosis, blockage, acute brain abnormality. History & Record Review Discussion w/independent historian: Patient Lab Data Attestation: I reviewed the patient's lab results. Labs: Laboratory Results - last 24 hr 10/06/23 01:48 WBC 6.4 RBC 5.40 Hgb 15.2 Hct 45.7 MCV 84.6 MCH 28.1 MCHC 33.3 RDW Std Deviation 36.9 RDW Coeff of Steff 12.2 Plt Count 254 MPV 10.6 Immature Gran % (Auto) 0.200 Neut % (Auto) 46.8 L Lymph % (Auto) 39.4 [place] % (Auto) 7.6 Eos % (Auto) 5.4 H Baso % (Auto) 0.6 Absolute Neuts (auto) 3.0 Absolute Lymphs (auto) 2.54 Nucleated RBC % 0 Sodium 140 Potassium 4.2 Chloride 108 H Carbon Dioxide 28.0 Anion Gap 4 L BUN 20 H Creatinine 1.58 H Estim Creat Clear Calc 78.18 Est GFR (MDRD) Af Amer 64 Est GFR (MDRD) Non-Af 53 L BUN/Creatinine Ratio 12.7 Glucose 112 H Calcium 9.1 Radiography Diagnostic Testing: Clinical Impression(s) from Imaging Studies Head/Neck CTA 10/06/23 01:36 IMPRESSION: Normal CTA Head and neck with contrast with no evidence of focal stenosis, occlusion or dissection. No evidence of intracranial aneurysm. Electronically Signed: Felisa Mota MD at 2:48 EST , Treatment and Re-Evaluation :: CBC reveals normal white count 6.4 with a hemoglobin of 15.2. Chemistry studies reveal a BUN of 20 and a creatinine 1.58. I do not have any prior values to compare to, but was able to look up records and [facility]. In May 2022 his creatinine was 1.5. Glucose is normal at 112. CTA of the head and neck reveals no acute abnormalities. On repeat evaluation patient does feel improved. His headache is improved and he reports no visual changes or paresthesias. At this time I do think his symptoms are secondary to migraine. He will continue supportive care and return instructions are provided. Discharge Plan Triage Chief Complaint: Headache ED Provider: Waleska Trevizo Dx/Rx/DC Orders Clinical Impression: Migraine Instructions: ED, Migraine (Classical) Primary Care Provider: Jaquan Bedoya Referrals: Jaquan Bedoya DO [Primary Care Provider] - 1-2 Weeks Disposition Disposition: Home, Self Care
[2023-10-06 05:02] VITALS: BP 137/76
== END 2023-10-06 05:05 | disposition home or self-care (01) ==
PROVIDERS: Emergency Provider Emergency Medicine; PCP Student in an Organized Health Care Education/Training Program; Visit Provider Emergency Medicine
DX: G43.909 Migraine, unspecified, not intractable, without status migrainosus (principal); E78.00 Pure hypercholesterolemia, unspecified; R41.0 Disorientation, unspecified
CPT/HCPCS: 70496; 70498; 80048; 85025; 96361; 96374; 99282; J7030; Q9967; A4216